=== PATIENT | female | born 1995 | race African-American/Black ===

== ENCOUNTER → 2016-08-15 13:53 | Outpatient (CLI) | payer OTHER ==
[2016-08-15 15:00] LABS: APPEARANCE CLEAR (CLEAR); BILIRUBIN NEGATIVE (NEGATIVE); COLOR YELLOW (YELLOW); GLUCOSE NEGATIVE (NEGATIVE); KETONE NEGATIVE (NEGATIVE); LEUKOCYTE ESTERASE NEGATIVE (NEGATIVE); NITRITE NEGATIVE (NEGATIVE); PROTEIN NEGATIVE (NEGATIVE); UROBILINOGEN NORMAL (NORMAL)
[2016-08-15 17:03] LABS: BASOPHILS 0.2 % (0-2); EOSINOPHILS 0.8 % (0-7); HEMATOCRIT 32.4 % (36.0-48.0); HEMOGLOBIN 10.8 g/dL (12-16); IMMATURE GRANULOCYTES 0.9 % (0-5); MCH 30.6 pg (26.0-34.0); MCHC 33.3 g/dL (31.0-37.0); MCV 91.8 fL (80.0-100.0); MEAN PLATELET VOLUME 10.7 fL (7.4-10.4); MONOCYTES 8.5 % (2-11); NEUTROPHILS 71.6 % (40-80); RBC 3.53 10x6/uL (4.00-5.40); RDW 13.4 % (11.5-14.5); WBC 8.9 10x3/uL (4.8-10.8)
[2016-08-15 17:14] LABS: PLATELET COUNT 183 10x3/uL (130-400)
[2016-08-15 17:25] LABS: ALBUMIN 2.6 g/dL (3.4-5.0); ALKALINE PHOSPHATASE 47 U/L (46-116); ALT (SGPT) 26 U/L (10-68); BILIRUBIN - TOTAL 0.21 mg/dL (0.2-1.3); CALC OSMOLALITY 268 mosm/kg (275-300); CALCIUM 8.5 mg/dL (8.5-10.1); CARBON DIOXIDE 25.7 mmol/L (21.0-32.0); CHLORIDE - SERUM 105 mmol/L (98-107); CREATININE - SERUM 0.5 mg/dL (0.6-1.3); GLUCOSE 80 mg/dL (74-106); POTASSIUM - SERUM 3.5 mmol/L (3.5-5.1); PROTEIN - SERUM 6.3 g/dL (6.4-8.2); SODIUM 136 mmol/L (136-145); UREA NITROGEN 6 mg/dL (7-18); eGFR NON AFRICAN AMERICAN > 90 mL/min (90-120)
== END | disposition home or self-care (01) ==
LOC: D.LDO 13:53
PROVIDERS: Obstetrics & Gynecology
DX: Z34.92 Encounter for supervision of normal pregnancy, unspecified, second trimester (principal); Z3A.21 21 weeks gestation of pregnancy; R10.9 Unspecified abdominal pain

== ENCOUNTER 2016-10-07 13:23 | Emergency (ER) | payer MEDICAID, OTHER ==
[2016-10-07 14:51] LABS: BASOPHILS 0.2 % (0-2); EOSINOPHILS 0.5 % (0-7); HEMATOCRIT 30.2 % (36.0-48.0); HEMOGLOBIN 10.1 g/dL (12-16); IMMATURE GRANULOCYTES 1.7 % (0-5); LYMPHOCYTES 11.1 % (15-50); MCH 30.6 pg (26.0-34.0); MCHC 33.4 g/dL (31.0-37.0); MCV 91.5 fL (80.0-100.0); MEAN PLATELET VOLUME 10.8 fL (7.4-10.4); MONOCYTES 8.6 % (2-11); NEUTROPHILS 77.9 % (40-80); PLATELET COUNT 194 10x3/uL (130-400); RDW 13.6 % (11.5-14.5); WBC 10.8 10x3/uL (4.8-10.8)
== END 2016-10-07 15:45 | disposition home or self-care (01) ==
LOC: D.ER 13:23
PROVIDERS: Emergency Medicine
DX: J20.9 Acute bronchitis, unspecified (principal)

== ENCOUNTER → 2016-10-27 16:22 | Outpatient (CLI) | payer MEDICAID, OTHER ==
[2016-10-27 17:31] LABS: APPEARANCE CLEAR (CLEAR); BILIRUBIN NEGATIVE (NEGATIVE); COLOR YELLOW (YELLOW); GLUCOSE NEGATIVE (NEGATIVE); KETONE NEGATIVE (NEGATIVE); LEUKOCYTE ESTERASE NEGATIVE (NEGATIVE); NITRITE NEGATIVE (NEGATIVE); PROTEIN NEGATIVE (NEGATIVE); UROBILINOGEN NORMAL (NORMAL)
== END | disposition home or self-care (01) ==
LOC: D.LDO 16:22
PROVIDERS: Obstetrics & Gynecology
DX: Z34.03 Encounter for supervision of normal first pregnancy, third trimester (principal); Z3A.32 32 weeks gestation of pregnancy; R10.2 Pelvic and perineal pain; M54.9 Dorsalgia, unspecified

== ENCOUNTER 2016-12-11 13:00 | Inpatient (IN) | payer MEDICAID, OTHER ==
[2016-12-11 13:54] LABS: APPEARANCE HAZY (CLEAR); BILIRUBIN NEGATIVE (NEGATIVE); COLOR YELLOW (YELLOW); GLUCOSE NEGATIVE (NEGATIVE); KETONE NEGATIVE (NEGATIVE); NITRITE NEGATIVE (NEGATIVE); PROTEIN TRACE mg/dL (NEGATIVE); SPECIFIC GRAVITY 1.015 (1.005-1.020); UROBILINOGEN NORMAL (NORMAL)
[2016-12-11 14:04] LABS: BACTERIA MANY /hpf (NONE SEEN); MUCUS >1+ /lpf (NONE SEEN); RED CELLS - URINE 0-5 /hpf (0-5)
[2016-12-11 14:05] LABS: HYALINE CAST OCC /lpf (NONE SEEN)
[2016-12-11 15:35] LABS: HEMOGLOBIN 11.2 g/dL (12-16); MCH 29.4 pg (26.0-34.0); MCHC 32.9 g/dL (31.0-37.0); MCV 89.2 fL (80.0-100.0); MEAN PLATELET VOLUME 11.7 fL (7.4-10.4); RBC 3.81 10x6/uL (4.00-5.40); RDW 13.5 % (11.5-14.5); WBC 9.8 10x3/uL (4.8-10.8)
[2016-12-11 18:31] VITALS: BP 120/76; BMI 26.3
[2016-12-12 02:53] VITALS: BP 135/72
--- NOTE | 2016-12-12 02:53 | NUR ---
PT TRANSFERED TO PP ROOM 1257 VIA WC. PT AMBUALTED TO BR WITH MINIMAL ASSISTANCE. PT VOIDED, RAMONE CARE PERFORMED USING BETADINE WASH, PT CLEANED SELF WITH WASHCLOTHES. RAMONE PAD AND PANTIES PLACED. CLEAN GOWN PLACED. PREVIOUS PATIENT CHARTING OCCURED IN CPN. SEE CPN FOR PREVIOUS CHARTING DETAILS AND SHIFT ASSESSMENT. PT LEFT IN BED IN SEMI-FOWLERS POSITION, IN NO ACUTE DISTRESS. BED IN LOW POSITION, SIDE RAILS UP TIMES 2, CALL LIGHT AND PHONE IN REACH. FAMILY REMAINS AT PT BS TIMES 2 FOR SUPPORT AND ASSISTANCE. WILL CONT TO MONITOR PT STATUS.
--- NOTE | 2016-12-12 04:36 | NUR ---
RN TO PT BS FOR ROUNDS. PT RESTING IN BED IN SEMI-FOWLERS POSITION, VISITING WITH NURSERY RN, PT IN NO ACUTE DISTRESS. PT DENIES ANY NEEDS AT THIS TIME. BED IN LOW POSITION, SIDE RAILS UP TIMES 2, CALL LIGHT AND PHONE IN REACH. FAMILY TIMES 2 FOR SUPPORT AND ASSISTANCE. INFANT REMAINS AT PT BS FOR COUPLET CARE. WILL CONT TO MONITOR PT STATUS.
--- NOTE | 2016-12-12 05:49 | NUR ---
RN CALLED TO PT BS. PT C/O PAIN, RATES 08/21, REQUESTS MEDICATION. 1 TAB NORCO 5 PROVIDED TO PT AT THIS TIME. PT DENIES ANY FURTHER NEEDS AT THIS TIME. PT TEMP NOW 97.9. BED IN LOW POSITION, SIDE RAILS UP TIMES 2, CALL LIGHT AND PHONE IN REACH. FAMILY TIMES 2 REMAIN AT PT BS FOR SUPPORT AND ASSISTANCE. INFANT REMAINS AT PT BS FOR COUPLET CARE. WILL CONT TO MONITOR PT STATUS.
[2016-12-12 07:08] VITALS: BP 123/71
--- NOTE | 2016-12-12 07:08 | NUR ---
RCVD PT FROM Ron ECHAVARRIA RN. PT LYING ON RT SIDE WITH HOB 15 DEGREES. PT REPORTS JUST GETTING BACK TO BED AFTER VOIDING WITH MOD LOCHIA ON PERIPAD. PT REPORTS "I SLEPT FOR A FEW HOURS BEFORE I CHANGED MY PAD." PT REPORTS NO CLOTS WHEN VOIDING. VSS, HR-RRR, PPP, BREATH SOUNDS CLEAR & UNLABORED X2. BOWEL SOUNS ACTIVE X4. FUNDUS FIRM, ML, U/2. SL NOTED TO LT FOREARM WITH NO ERYTHEMA OR EDEMA NOTE TO SITE. NO EDEMA NOTED TO BLE. PT REPORTS PAIN 0/10 AT THIS TIME AND DENIES FURTHER NEEDS. WILL CONT TO MONITOR. BED LOW, WHEELS LOCKED, CL IN REACH, SIDE RAILS UP X2.
--- NOTE | 2016-12-12 08:26 | NUR ---
ROUNDS MADE. PT WAKES EASILY UPON RN ENTERING ROOM. PT DENIES PAIN OR NEEDS.
--- NOTE | 2016-12-12 09:51 | NUR ---
ROUNDS MADE. PT REPORTS PAIN IN LOWER BACK AND "PRESSURE" IN VAGINA. PT RATES PAIN 4/10 BUT DENIES NEED FOR MEDICATION AT THIS TIME. ADV PT TO NOT LET PAIN GET SEVERE BEFORE ASKING FOR MEDICATION. PT IS AGREEABLE AND VERBALIZES UNDERSTANDING.
[2016-12-12 10:23] LABS: BASOPHILS 0.1 % (0-2); EOSINOPHILS 0 % (0-7); HEMATOCRIT 32.4 % (36.0-48.0); HEMOGLOBIN 10.8 g/dL (12-16); IMMATURE GRANULOCYTES 0.3 % (0-5); LYMPHOCYTES 7.1 % (15-50); MCH 29.3 pg (26.0-34.0); MCHC 33.3 g/dL (31.0-37.0); MEAN PLATELET VOLUME 12.3 fL (7.4-10.4); MONOCYTES 7.7 % (2-11); NEUTROPHILS 84.8 % (40-80); PLATELET COUNT 182 10x3/uL (130-400); RBC 3.68 10x6/uL (4.00-5.40); RDW 13.6 % (11.5-14.5); WBC 18.1 10x3/uL (4.8-10.8)
--- NOTE | 2016-12-12 11:20 | NUR ---
ROUNDS MADE. MEAL TRAY REMOVED FROM ROOM. PT DENIES PAIN OR NEEDS AT THIS TIME.
--- NOTE | 2016-12-12 12:53 | NUR ---
PAIN REASSESSMENT COMPLETE. PT RATES PAIN 0/10 CURRENTLY. FAMILY IN ROOM VISITING WITH PT AT THIS TIME AND PT DENIES FURTHER NEEDS.
--- NOTE | 2016-12-12 14:47 | NUR ---
ROUNDS MADE. PT LYING ON LT SIDE WITH HOB 30 DEGREES. IN OPEN CRIB AT BEDSIDE. FAMILY RESTING ON BEDSIDE COUCH. PT DENIES PAIN OR NEEDS AT THIS TIME. WILL CONT TO MONITOR.
--- NOTE | 2016-12-12 15:56 | NUR ---
ROUNDS MADE. FAMILY IN ROOM VISITING WITH PT AT THIS TIME. PT DENIES PAIN OR NEEDS. WILL CONT TO MONITOR.
--- NOTE | 2016-12-12 16:58 | NUR ---
FAMILY TO DESK WITH REPORT THAT PT DESIRES TO SHOWER. THIS RN TO BEDSIDE TO TAPE PIV. TOWELS PROVIDED. PT DENIES FURTHER NEEDS.
--- NOTE | 2016-12-12 17:41 | NUR ---
PT'S FAMILY MEMBER TO DESK WITH C/O PT HAVING PAIN AND NEEDING MEDICATION. THIS RN ACCOMPANIED FAMILY MEMBER TO ROOM. PT C/O PAIN 5/10 AT THIS TIME AND REQUESTS MOTRIN AND NORCO AT THE SAME TIME. WILL RETURN WITH SAME.
--- NOTE | 2016-12-12 17:48 | NUR ---
MOTRIN AND NORCO GIVEN PER PT REQUEST FOR PAIN RATED 5/10 AT THIS TIME. PT DENIES FURTHER NEEDS. WILL CONT TO MONITOR.
--- NOTE | 2016-12-12 18:30 | NUR ---
PAIN REASSESSMENT COMPLETE. PT RATES PAIN 3/10 AND TOLERABLE. DENIES FURTHER NEEDS. FOB IN ROOM VISITING WITH PT.
[2016-12-12 19:26] VITALS: BP 131/80
--- NOTE | 2016-12-12 19:36 | NUR ---
PT RECEIVED TO MY CARE IN ROOM 1257. PT RESTING IN BED IN RIGHT TILT POSITION, VISITING WITH MULTIPLE FAMILY MEMBERS AT BS, IN NO ACUTE DISTRESS. PT IS A 21YO G1 NOW P1 WITH OF VIABLE MALE THIS MORNING @ 0001. @ 38.4WKS GESTATION. DELIVERY COMPLICATED BY FIRST DEGREE VAGINAL LACERATION AND REPAIR AND TEMP OF 101.7 PRIOR TO . PT NOW ON INVANZ 1GM IVPB Q 24 HOURS. AAOX3. HR REGULAR. LUNGS CTAB. ABDOMEN SOFT AND NON TENDER. BS ACTIVE TIMES 4. FUNDUS FIRM AND ML @ U/-1. LOCHIA RUBRA SCANT. RAMONE PAD AND PANTIES IN PLACE. PT DENIES DIFFICULTY VOIDING. STATES SHE HAS PASSED GAS BUT HAS NOT HAD A BM SINCE . PERINIUM APPEARS TO BE INTACT WITH MINIMAL AMOUNT OF EDEMA NOTED. PT TOLERATING REGULAR DIET WITHOUT DIFFICULTY. NO SWELLING NOTED TO UPPER OR LOWER EXTREMITIES BILATERALLY. 18G SL IN PLACE TO LEFT FA, FLUSHED AT THIS TIME WITH 5CC NS WITHOUT DIFFICULTY. NO REDNESS, EDEMA, OR DRAINAGE NOTED TO SITE. PT C/O PAIN, RATES 3/10. WATER MUG REFRESHED. PT TEACHING PROVIDED ON RAMONE CARE WITH BETADINE WASH, VERBALIZED UNDERSTANDING. PT DENIES ANY FURTHER NEEDS AT THIS TIME. BED IN LOW POSITION, SIDE RAILS UP TIMES 2, CALL LIGHT AND PHONE IN REACH. MULTIPLE FAMILY MEMBERS REMAIN AT PT BS FOR SUPPORT AND ASSISTANCE. INFANT REMAINS AT PT BS FOR COUPLET CARE. WILL CONT TO MONITOR PT STATUS.
--- NOTE | 2016-12-12 20:49 | NUR ---
RN TO PT BS FOR ROUNDS. PT RESTING IN BED IN SEMI-FOWLERS POSITION, . PT IN NO ACUTE DISTRESS. PT DENIES ANY NEEDS AT THIS TIME. BED IN LOW POSITION, SIDE RAILS UP TIMES 2, CALL LIGHT AND PHONE IN REACH. SO AT PT BS FOR SUPPORT AND ASSISTANCE. REMAINS AT PT BS FOR COUPLET CARE. WILL CONT TO MONITOR PT STATUS.
--- NOTE | 2016-12-12 22:29 | NUR ---
RN TO PT BS FOR ROUNDS. PT RESTING IN BED IN RIGHT TILT POSITION, WITH EYES CLOSED, IN NO ACUTE DISTRESS. RESPIRATIONS EVEN AND UNLABORED. BED IN LOW POSITION, SIDE RAILS UP TIMES 2, CALL LIGHT AND PHONE IN REACH. SO REMAINS AT PT BS FOR SUPPORT AND ASSISTANCE. WILL CONT TO MONITOR PT STATUS.
--- NOTE | 2016-12-12 23:28 | NUR ---
RN CALLED TO PT BS WITH C/O PAIN, RATES 08/21, REQUESTS MEDICATION. 1 TAB NORCO 5 AND 1 TAB IBUPROFEN PROVIDED TO PT AT THIS TIME WITH FRESH MUG OF WATER. PT DENIES ANY FURTHER NEEDS AT THIS TIME. BED IN LOW POSITION, SIDE RAILS UP TIMES 2, CALL LIGHT AND PHONE IN REACH. SO REMAINS AT PT BS FOR SUPPORT AND ASSISTANCE. REMAINS AT PT BS FOR COUPLET CARE. WILL CONT TO MONITOR PT STATUS.
[2016-12-13 00:45] VITALS: BP 126/85
--- NOTE | 2016-12-13 00:45 | NUR ---
RN TO PT BS TO ADMINISTER 0100 DOSE OF INVANZ. PT RESTING IN BED IN HIGH FOWLERS POSITION, INFANT, PT IN NO ACUTE DISTRESS. 18G SL FLUSHED WITH 5 CC NS WITHOUT DIFFICULTY. INVANZ HUNG TO INFUSE VIA PUMP AT 150CC/HR. PT DENIES ANY NEEDS AT THIS TIME BED IN LOW POSITION, SIDE RAILS UP TIMES 2, CALL LIGHT AND PHONE IN REACH. FAMILY AT PT BS TIMES 1 FOR SUPPORT AND ASSISTANCE. INFANT REMAINS AT PT BS FOR COUPLET CARE. WILL CONT TO MONITOR PT STATUS.
--- NOTE | 2016-12-13 01:36 | NUR ---
RN TO PT BS. PT RESTING IN BED IN HIGH FOWLERS POSITION, HOLDING , PT IN NO ACUTE DISTRESS. INVANZ 1GM INFUSION COMPLETE. 18G IV IN LEFT FA FLUSHED AT THIS TIME WITH 5CC NS WITHOUT DIFFICULTY. PT DENIES ANY FURTHER NEEDS. BED IN LOW POSITION, SIDE RAILS UP TIMES 2, CALL LIGHT AND PHONE IN REACH. FAMILY TIMES 1 REMAINS AT PT BS FOR SUPPORT AND ASSISTANCE. INFANT REMAINS AT PT BS FOR COUPLET CARE. WILL CONT TO MONITOR PT STATUS.
--- NOTE | 2016-12-13 03:51 | NUR ---
RN TO PT BS FOR ROUNDS. PT RESTING IN BED IN SEMI-FOWLERS POSITION, WITH EYES CLOSED, IN NO ACUTE DISTRESS. RESPIRATIONS EVEN AND UNLABORED. BED IN LOW POSITION, SIDE RAILS UP TIMES 2, CALL LIGHT AND PHONE IN REACH. FAMILY AT PT BS TIMES 1 FOR SUPPORT AND ASSISTANCE. WILL CONT TO MONITOR PT STATUS.
[2016-12-13 07:30] VITALS: BP 117/78
--- NOTE | 2016-12-13 07:30 | NUR ---
PT IS SITTING UP IN BED, HOLDING BABY. FAMILY MEMBER AT BEDSIDE. SHE STATES THAT HER PAIN IS A 5. VSS. TEMP 98.1. GEN- AWAKE AND ALERT- LUNGS- CLEAR. HEART- RRR. ABD- SOFT WITH TENDERNESS NOTED. SMALL LOCIA RUBRA NOTED ON PAD. EXT- MINIMAL EDEMA. BED IS LOW. SIDE RAILS UP X 2 AND CALL LIGHT IN REACH. SALINE LOCK NOTED LEFT FOREARM.
--- NOTE | 2016-12-13 08:33 | NUR ---
PT IS RESTING IN BED. SHE STATES HER PAIN IS IMPROVING. STATES IT IS ABOUT A 3.
--- NOTE | 2016-12-13 09:15 | NUR ---
PT IS SITTING UP IN BED BABY. SHE OFFERS NO COMPLAINTS. PT REQUESTED APPLE JUICE. GAVE TO HER.
--- NOTE | 2016-12-13 10:21 | NUR ---
PT C/O HER SALINE LOCK IN HER LEFT ARM. SHE STATES THAT IT IS HURTING HER. ON EXAM HER IV SITE IS TENDER AND WITH SOME REDNESS NOTED. AREA IS ALSO FIRM. SALINE LOCK D'CD.
--- NOTE | 2016-12-13 12:30 | NUR ---
PT IS UP TO SHOWER. TOLERATED WELL. LINEN'S CHANGED.
--- NOTE | 2016-12-13 14:00 | NUR ---
PT IS SITTING UP IN BED VISITING WITH FAMILY. SHE OFFERS NO COMPLAINTS.
--- NOTE | 2016-12-13 16:06 | NUR ---
pt requested pain med. pain is a 6/10 and is in her back and abdomen.
--- NOTE | 2016-12-13 16:58 | NUR ---
PT IS SITTING UP IN BED. BABY. HER PAIN IS BETTER AND RATES IT ABOUT A 2. HER GRANDMOTHER AT BEDSIDE.
[2016-12-13 19:25] VITALS: BP 132/79
--- NOTE | 2016-12-13 19:25 | NUR ---
AWAKE DURING INITIAL BEDSIDE ROUNDING REPORT. INTRODUCED SELF. V/S TAKEN. ASSESSMENT DONE. STATUS POST VAGINAL DELIVERY 12/12. . INFANT AT THIS TIME. BONDING WELL. VOIDING WELL, LOCHIA RUBRA MODERATE PER PT.
--- NOTE | 2016-12-13 22:55 | NUR ---
RESITED SALINE LOCK TO R HAND x1 STICK WITH GOOD BLOOD RETURN.
--- NOTE | 2016-12-13 23:35 | NUR ---
INFANT TO THE NURSERY IN OPEN CRIB.
--- NOTE | 2016-12-14 00:50 | NUR ---
INVANZ IV ANTIBIOTIC INFUSING. NO ADVERSE REACTION NOTED. V/S STABLE. AFEBRILE. FOB IN THE ROOM.
[2016-12-14 00:51] VITALS: BP 124/81
--- NOTE | 2016-12-14 02:35 | NUR ---
PAIN LEVEL; "7"/10 FROM BACK. NORCO 5/325 / MOTRIN 600mg 1tab PO GIVEN FOR PAIN CONTROL.
--- NOTE | 2016-12-14 02:47 | NUR ---
BROUGHT BABY TO MOM FOR .
--- NOTE | 2016-12-14 06:06 | NUR ---
SLEPT FAIRLY WELL DURING THE NIGHT. CONTINUING PLAN OF CARE. ANTICIPATES DISCHARGE TODAY.
[2016-12-14 07:15] VITALS: BP 118/79
[2016-12-14 07:25] LABS: RAPID PLASMA REAGIN Non Reactive (Non Reactive)
--- NOTE | 2016-12-14 07:30 | NUR ---
PT WAS RECEIVED SITTING UP IN BED FEEDING BABY. SHE OFFERS NO COMPLAINTS. BABY IS WELL. GEN- AWAKE AND ALERT. LUNGS- CLEAR. HEART- RR ABD- SOFT WITH TENDERNESS. EXT- NO EDEMA. PT IS VOIDING WITHOUT DIFFICULTY SHE IS TOLERATING A REGULAR DIET. BED IS LOW, SIDE RAILS UP X 2 AND CALL LIGHT IN REACH.
[2016-12-14 09:29] LABS: BASOPHILS 0.3 % (0-2); EOSINOPHILS 1.1 % (0-7); HEMATOCRIT 30.6 % (36.0-48.0); HEMOGLOBIN 10.2 g/dL (12-16); IMMATURE GRANULOCYTES 1.3 % (0-5); LYMPHOCYTES 21.9 % (15-50); MCH 29.4 pg (26.0-34.0); MCHC 33.3 g/dL (31.0-37.0); MCV 88.2 fL (80.0-100.0); MEAN PLATELET VOLUME 11.4 fL (7.4-10.4); NEUTROPHILS 67.4 % (40-80); PLATELET COUNT 166 10x3/uL (130-400); RBC 3.47 10x6/uL (4.00-5.40); RDW 13.8 % (11.5-14.5)
[2016-12-14 09:44] LABS: WBC 9.1 10x3/uL (4.8-10.8)
--- NOTE | 2016-12-14 10:06 | NUR ---
PT IS SLEEPING IN BED. SIDE RAILS UP X 2, BED IS LOW AND CALL LIGHT IN REACH. FOB AT BEDSIDE
[2016-12-14] MEDS ORDERED: AUGMENTIN 875-11 TAB PO (11:54)
[2016-12-14] MEDS ORDERED: HYDROCODON-ACE1 EAC7 PO (11:55)
--- NOTE | 2016-12-14 12:36 | NUR ---
PT WAS DISCHARGED. TAKEN TO VEHICLE BY WHEELCHAIR. DISCHARGE INSTRUCTIONS PRESCRIPTIONS AND FU APPT WERE GIVEN.
== END 2016-12-14 12:56 | disposition home or self-care (01) | DRG 774 ==
LOC: D.LDO 13:00 → D.LD 14:39
PROVIDERS: ADMIT Obstetrics & Gynecology
PROC: 10E0XZZ Delivery of Products of Conception, External Approach (ICD-10-PCS; principal; 2016-12-12)
DX: O42.92 Full-term premature rupture of membranes, unspecified as to length of time between rupture and onset of labor (principal); O75.2 Pyrexia during labor, not elsewhere classified; O75.3 Other infection during labor; Z3A.38 38 weeks gestation of pregnancy; Z37.0 Single live birth; N71.9 Inflammatory disease of uterus, unspecified; O99.344 Other mental disorders complicating childbirth; F41.8 Other specified anxiety disorders

== ENCOUNTER 2018-05-04 06:44 | Emergency (ER) | payer SELFPAY ==
[~2018-05-04] VITALS: Ht 165.1 cm; Wt 57.7 kg
[~2018-05-04 06:44] MED LIST: AUGMENTIN 875-11 TAB PO; HYDROCODON-ACE1 EAC7 PO
[2018-05-04 06:49] VITALS: Ht 165.1 cm; Wt 57.7 kg
[2018-05-04 07:26] LABS: BASOPHILS 0.4 % (0-2); EOSINOPHILS 3.9 % (0-7); HEMATOCRIT 38.8 % (36.0-48.0); HEMOGLOBIN 12.9 g/dL (12-16); IMMATURE GRANULOCYTES 0.3 % (0-5); LYMPHOCYTES 32.7 % (15-50); MCH 30.1 pg (26.0-34.0); MCHC 33.2 g/dL (31.0-37.0); MCV 90.4 fL (80.0-100.0); MEAN PLATELET VOLUME 10.1 fL (7.4-10.4); MONOCYTES 7.7 % (2-11); RBC 4.29 10x6/uL (4.00-5.40); RDW 13.8 % (11.5-14.5); WBC 7.1 10x3/uL (4.8-10.8)
[2018-05-04 07:36] LABS: ALBUMIN 3.4 g/dL (3.4-5.0); ALKALINE PHOSPHATASE 79 U/L (46-116); ALT (SGPT) 15 U/L (10-68); BILIRUBIN - TOTAL 0.33 mg/dL (0.2-1.3); CALC OSMOLALITY 276 mosm/kg (275-300); CALCIUM 8.3 mg/dL (8.5-10.1); CARBON DIOXIDE 24.2 mmol/L (21.0-32.0); CHLORIDE - SERUM 105 mmol/L (98-107); CREATININE - SERUM 0.7 mg/dL (0.6-1.3); GLUCOSE 95 mg/dL (74-106); PROTEIN - SERUM 7.2 g/dL (6.4-8.2); SODIUM 139 mmol/L (136-145); UREA NITROGEN 9 mg/dL (7-18); eGFR NON AFRICAN AMERICAN > 90 mL/min (90-120)
[2018-05-04 07:39] LABS: AMYLASE - SERUM 45 U/L (25-115); LIPASE 131 U/L (73-393); TROPONIN-I < 0.017 ng/mL (0.000-0.060)
[2018-05-04 07:47] LABS: PLATELET COUNT 272 10x3/uL (130-400)
[2018-05-04 08:09] LABS: HCG URINE NEGATIVE (NEGATIVE)
[2018-05-04 08:18] LABS: APPEARANCE HAZY (CLEAR); BILIRUBIN NEGATIVE (NEGATIVE); COLOR YELLOW (YELLOW); GLUCOSE NEGATIVE (NEGATIVE); KETONE NEGATIVE (NEGATIVE); NITRITE NEGATIVE (NEGATIVE); PROTEIN NEGATIVE (NEGATIVE); UROBILINOGEN NORMAL (NORMAL)
[2018-05-04 08:19] LABS: BACTERIA FEW /hpf (NONE SEEN); EPITHELIAL CELLS 0-5 /hpf (0-5); MUCUS <1+ /lpf (NONE SEEN); RED CELLS - URINE 0-5 /hpf (0-5); WHITE CELLS - URINE RARE /hpf (0-5)
[2018-05-04 09:45] VITALS: BP 113/64
== END 2018-05-04 09:41 | disposition home or self-care (01) ==
LOC: D.ER 06:44
PROVIDERS: Family Medicine
DX: K59.00 Constipation, unspecified (principal)